=== PATIENT | female | born 1955 | race Caucasian/White ===

== ENCOUNTER → 2017-10-21 | Outpatient (CLI) | payer OTHER ==
[~2017-10-21] MED LIST: LEVAQUIN500 MG PO; MEDROL4 MG/DOSE- PO; NORVASC5 MG PO; PROAIR HFA INH8.5 GM INH
== END ==
LOC: MAMMO 08:28
PROVIDERS: ATTEND Internal Medicine
DX: Z12.31 Encounter for screening mammogram for malignant neoplasm of breast (principal)
CPT/HCPCS: 77067